=== PATIENT | female | born 1940 | race Caucasian/White ===

== ENCOUNTER 2017-09-23 16:23 | Emergency (ER) | payer MEDICAID ==
[~2017-09-23] VITALS: Ht 160 cm; Wt 90.0 kg
[~2017-09-23 16:23] MED LIST: ALBU0.08 NEB; ALBUAER3 INH; ASPI81TA23 PO; ATEN100T PO; ATOR20TA15 PO; CETI10 PO; FLUO20CA12 PO; GABA300C5 PO; GLIP-157 PO; HYDR-3799 PO; HYDR-755 PO; LEVO100T5 PO; LOSA50TA2 PO; METF-382 PO; OMEP40CA2 PO; OSEL75 PO; QUET5TAB PO
[2017-09-23 16:26] VITALS: BP 184/83; PULSE 62; RESP 16; TEMP 97.7; O2SAT 97
[2017-09-23 16:42] VITALS: BP 174/97; PULSE 62; RESP 18; O2SAT 100
--- NOTE | 2017-09-23 16:49 | PD ---
HPI Chief Complaint: Edema Time Seen by Provider: 16:35 Travel History International Travel<30 days: No Contact w/Intl Traveler<30days: No Traveled to known affect area: No History of Present Illness HPI 79-year-old female transferred from [facility] ER presents emergency department complaining of left lower extremity pain after hitting her leg 4 days ago. Her daughter translates for us today as she is almost exclusively Greek-speaking. Says her pain is located in the lateral aspects of the upper calf with radiation to the mid anterior calf region. Says the pain is mild to moderate in severity and dull. She says that they performed an x-ray at the hospital which demonstrated no acute process. Denies chest pain, SOB. She denies history of clots, surgeries, fractures, cancer, recent travel. Patient takes aspirin daily but no other blood thinners or anticoagulants. PFSH Past Medical History Arthritis: Yes Asthma: Yes Blood Disorders: No Cancer: No Cardiovascular Problems: Yes (HTN) High Cholesterol: Yes Diabetes: Yes Patient Takes Glucophage: Yes Diminished Hearing: No Endocrine: Yes Gastrointestinal Disorders: No Glaucoma: Yes (beginning of) Genitourinary: No Headaches: Yes Hepatitis: Yes Hypertension: Yes Immune Disorder: No Implanted Vascular Access Dvce: Yes Musculoskeletal: Yes Neurologic: No Psychiatric: No Reproductive: No Respiratory: Yes (Asthma) Thyroid Disease: Yes ?: Not Menopausal: Yes Past Surgical History Gynecologic Surgery: Yes (VAGINAL CYST) Joint Replacement: Yes (bilateral knee replaced) Oral Surgery: Yes (tonsillectomy) Other Surgery: Yes (right femur) Social History Alcohol Use: Yes (very rarely) Tobacco Use: No Substance Use: No Allergies-Medications (Allergen,Severity, Reaction): Coded Allergies: No Known Allergies (Verified Adverse Reaction, Unknown, 09/23/17) Reported Meds & Prescriptions Reported Meds & Active Scripts Active Voltaren (Diclofenac Sodium) 1 % Gel..gram. 4 Grain TOPICAL QID 7 Days 2-4 grams topical 4 times daily as needed for pain. Reported Albuterol Neb (Albuterol Sulfate) 2.5 Mg/3 Ml Neb 2.5 Mg NEB Q4HR NEB While awake Aspirin EC (Aspirin) 81 Mg Tabdr 81 Mg PO DAILY Gabapentin 300 Mg Cap 300 Mg PO HS Hydroxyzine HCl 10 Mg Tab 10 Mg PO DAILY Metformin ER (Metformin HCl) 1,000 Mg Fred 1,000 Mg PO BID With evening meal Proair Hfa 8.5 GM Inh (Albuterol Sulfate) 90 Mcg/Act Aer 2 Puff INH Q4-6H PRN 108 mcg/actuation Omeprazole 40 Mg Cap 40 Mg PO DAILY Losartan-Hydrochlorothiazide 50-12.5 Mg Tab 1 Tab PO BID Quetiapine (Quetiapine Fumarate) 50 Mg Tab 75 Mg PO HS Hydralazine HCl 25 Mg Tablet 25 Mg PO DAILY Atorvastatin (Atorvastatin Calcium) 20 Mg Tab 20 Mg PO HS Atenolol 100 Mg Tab 100 Mg PO HS Fluoxetine (Fluoxetine HCl) 20 Mg Capsule 20 Mg PO DAILY Levothyroxine (Levothyroxine Sodium) 100 Mcg Tab 100 Mcg PO DAILY Cetirizine (Cetirizine HCl) 10 Mg Tab 10 Mg PO DAILY Review of Systems Except as stated in HPI: all other systems reviewed are Neg Physical Exam Narrative GENERAL: WD, WN in NAD SKIN: Warm and dry. HEAD: Atraumatic. Normocephalic. EYES: Pupils equal and round. No scleral icterus. No injection or drainage. ENT: No nasal bleeding or discharge. Mucous membranes pink and moist. NECK: Trachea midline. No JVD. CARDIOVASCULAR: Regular rate and rhythm. RESPIRATORY: No accessory muscle use. Clear to auscultation. Breath sounds equal bilaterally. GASTROINTESTINAL: Abdomen soft, non-tender, nondistended. MUSCULOSKELETAL: Extremities without clubbing, cyanosis, or edema. No obvious deformities. Left leg- calf nonedematous, non erythematous, tender palpation to lateral upper aspect of calf. Tender palpation. Dorsalis pedis pulses present. NEUROLOGICAL: Awake and alert. No obvious cranial nerve deficits. Motor grossly within normal limits. Five out of 5 muscle strength in the arms and legs. Normal speech. PSYCHIATRIC: Appropriate mood and affect; insight and judgment normal. Data Data Last Documented VS Vital Signs Date Time Temp Pulse Resp B/P (MAP) Pulse Ox O2 Delivery O2 Flow Rate FiO2 09/23/17 16:43 68 19 100 Room Air 09/23/17 16:42 174/97 (122) 09/23/17 16:26 97.7 Orders Orders Us Leg Venous Doppler (09/23/17 ) Ed Discharge Order (09/23/17 17:40) MDM Medical Decision Making Medical Screen Exam Complete: Yes Emergency Medical Condition: Yes Differential Diagnosis Left calf DVT, hematoma, contusion Narrative Course 77-year-old female transferred from [facility] ED presents emergency room for rule out a DVT left lower extremity. EMR reviewed from [place] ER visit. Ultrasound ordered. Ultrasound was negative for DVT. Patient likely has a contusion as a result of the injury vs radiculopathy. There is no edema, erythema, bulging of the lower extremity. Advised patient to elevate the legs to reduce swelling to the area. After discussing further with the patient and daughter, he thinks some of her pain may be related to sciatica as well. She does deny back pain today but it is possible this could be radicular pain. Consider using hot or cold compresses for pain relief. Voltaren gel for pain. Follow up with PCP for further treatment or eval. Return for worsening or persistent symptoms. Diagnosis Primary Impression: Contusion Qualified Codes: S80.12XA - Contusion of left lower leg, initial encounter Referrals: Primary Care Physician Additional Instructions: Use ice or heat for symptom relief. Elevate the joint above the heart to reduce swelling. You may use compression with Edmar wrap or similar to reduce swelling. If symptoms persist or worsen, return to the emergency department. Follow up with your primary care physician within 2 days. Use medication as prescribed. Scripts Diclofenac Sodium (Voltaren) 1 % Gel..gram. 4 GRAIN TOPICAL QID for Pain Management for 7 Days, #100 % 2-4 grams topical 4 times daily as needed for pain. Prov: Leeann Harrison MD 09/23/17 Disposition: 01 DISCHARGE HOME Condition: Stable Sara Mcdonnell Sep 23, 2017 16:49
--- NOTE | 2017-09-23 17:21 | RADRPT ---
EXAM DATE/TIME: 09/23/2017 16:52 [facility] COMPARISON: No previous studies available for comparison. INDICATIONS : Left leg swelling. MEDICAL HISTORY : Hypertension. Hypercholesterolemia. Arthritis. SURGICAL HISTORY : Tonsillectomy. Bilateral knee replacements. Right femur surgery. ENCOUNTER: Initial ACUITY: 3 days PAIN SCORE: 4/10 LOCATION: Left leg. TECHNIQUE: Venous ultrasound of the leg was performed from the inguinal ligament to the proximal calf. Real-estephania e, color Doppler and spectral tracing, compression and augmentation techniques were used. FINDINGS: There is normal compressibility of the deep venous system from the inguinal region to the proximal ca lf. No echogenic clot is seen in the lumen of the common femoral, femoral, popliteal, and posterior tibial veins. There is a normal response of the venous system to proximal and distal augmentation an d respiration. CONCLUSION: No evidence of deep venous thrombosis within the left lower extremity. Jaylen Winkler MD on September 23, 2017 at 17:19 Board Certified Radiologist. This report was verified electronically.
[2017-09-23] MEDS ORDERED: VOLT1GEL16 TOPICAL (17:40)
== END 2017-09-23 17:51 | disposition home or self-care (01) ==
LOC: NEPC 16:23
DX: S80.12XA Contusion of left lower leg, initial encounter (principal); M79.662 Pain in left lower leg; E11.9 Type 2 diabetes mellitus without complications; E78.00 Pure hypercholesterolemia, unspecified; I10 Essential (primary) hypertension; J45.909 Unspecified asthma, uncomplicated; H40.9 Unspecified glaucoma; W22.8XXA Striking against or struck by other objects, initial encounter; Z79.82 Long term (current) use of aspirin
CPT/HCPCS: 73590; 80053; 85025; 85610; 85730; 93971; 99281; 99284